=== PATIENT | female | born 1960 | race Caucasian/White ===

== ENCOUNTER 2016-08-06 11:11 | Day surgery (SDC) | payer OTHER ==
[2016-08-06] VITALS (7 sets, daily range): BP systolic 101–203; BP diastolic 52–92; PULSE 78–106; TEMP 98.3
[~2016-08-06] VITALS: Ht 165.2 cm; Wt 130.0 kg
[~2016-08-06 11:11] MED LIST: ACIDOPHILIS; ACIDOPHILUS PO; ALLEGRA60 MG PO; ARMOUR THYROID60 MG PO; BIAXIN 500MG T500 MG PO; BOSWELLIA EXTRACT PO; CEFTIN500 MG PO; CELEBREX; ELIQUIS 5MG PO; FLONASE NASAL S16 GM NS; LASIX 20MG TABL20 MG PO; MSM1000 MG; MULTAQ400 MG PO; MULTI VITAMINS1 TAB PO; MULTIPLE VITAMI1 CAP PO; NIFEREX-150 FOR1 CA1 PO; OMEGA-3 1000 MG1 CAP PO; PHENERGAN25 MG RC; SINGULAIR; SINGULAIR 110 MG/TAB PO; SYNTHROID PO; TUSS PO; TYLENOL/CODEINE1 ML PO; ULTRAM 50MG TAB50 MG PO; VITAMIN E800 I1 PO; VITAMINC1000TA; [UNRECOGNIZED DRUG - CODE]; [UNRECOGNIZED DRUG - REMARK]
[2016-08-06] MEDS ORDERED: CALCIUM-MAGNES1 EAC1 PO (12:52)
[2016-08-06 13:22] LABS: HEMATOCRIT 41.3 % (37.0-47.0); HEMOGLOBIN 12.3 g/dl (12.5-16.0); INR 1.1 (0.8-3.0); MEAN CELL VOLUME 92 fl (80.0-100.0); MEAN CORPUSCULAR HEMOGLOBIN 28 pg (27.0-31.0); MEAN CORPUSCULAR HGB CONC 30 g/dl (33.0-37.0); MEAN PLATELET VOLUME 11.2 fl (7.4-10.4); PLATELET COUNT 212 K/mm3 (130-400); PROTHROMBIN TIME 12.2 SECONDS (9.7-12.8); RED BLOOD COUNT 4.47 M/mm3 (4.10-5.30); REDCELL DISTRIBUTION WIDTH-CV 14.2 % (11.5-14.5); WHITE BLOOD COUNT 5.3 K/mm3 (4.8-10.8)
[2016-08-06 13:41] LABS: CALCIUM 9.8 mg/dL (8.4-10.2); CREATININE, serum 0.65 mg/dL (0.52-1.25); POTASSIUM 4.2 mmol/L (3.4-5.0)
== END 2016-08-06 18:45 | disposition home or self-care (01) ==
LOC: EUO 11:11 → COL.RAD 11:15 → EUO 18:45
PROVIDERS: Internal Medicine Interventional Cardiology
DX: R94.39 Abnormal result of other cardiovascular function study (principal); R06.02 Shortness of breath; I48.0 Paroxysmal atrial fibrillation; R07.89 Other chest pain; I83.93 Asymptomatic varicose veins of bilateral lower extremities
CPT/HCPCS: C1887; J2250; J3010; Q9967

== ENCOUNTER 2016-09-17 08:45 | Outpatient (RCR) | payer OTHER ==
[~2016-09-17 08:45] MED LIST changes: +CALCIUM-MAGNES1 EAC1 PO
== END 2016-11-18 | disposition home or self-care (01) ==
LOC: WSC
DX: R53.81 Other malaise (principal); I48.0 Paroxysmal atrial fibrillation

== ENCOUNTER 2017-02-23 23:48 | Emergency (ER) | payer OTHER ==
[~2017-02-23] VITALS: Ht 165.1 cm; Wt 117.2 kg
[2017-02-24 00:58] LABS: BASO % 0.5 % (0.0-2.0); EOS # 0.4 (0.0-0.7); GRAN # 2.6 (1.4-6.5); GRAN % 45.2 % (42.2-75.2); HEMOGLOBIN 12.6 g/dl (12.5-16.0); LYMPH # 2.2 (1.2-3.4); LYMPH % 38.1 % (20.0-51.0); MEAN CELL VOLUME 87 fl (80.0-100.0); MEAN CORPUSCULAR HEMOGLOBIN 28 pg (27.0-31.0); MEAN CORPUSCULAR HGB CONC 32 g/dl (33.0-37.0); MEAN PLATELET VOLUME 10.6 fl (7.4-10.4); MONO # 0.5 (0.1-0.6); MONO % 8.9 % (1.7-9.3); PLATELET COUNT 250 K/mm3 (130-400); RED BLOOD COUNT 4.58 M/mm3 (4.10-5.30); REDCELL DISTRIBUTION WIDTH-CV 14.8 % (11.5-14.5); WHITE BLOOD COUNT 5.9 K/mm3 (4.8-10.8)
[2017-02-24 01:10] LABS: ADJUSTED CALCIUM 9.2 mg/dL (8.4-10.2); ALANINE AMINOTRANSFERASE 26 U/L (9-52); ALBUMIN 4.3 gm/dL (3.5-5.0); ALKALINE PHOSPHATASE 95 U/L (50-136); ANION GAP 11 mmol/L (7-16); BILIRUBIN,TOTAL 0.6 mg/dL (0.0-1.0); BLOOD UREA NITROGEN 24 mg/dL (7-17); C-REACTIVE PROTEIN 1.4 mg/dL (0.0-0.9); CALCIUM 9.4 mg/dL (8.4-10.2); CARBON DIOXIDE 27 mmol/L (22-30); CHLORIDE 103 mmol/L (98-107); CREATININE, serum 0.77 mg/dL (0.52-1.25); GLUCOSE 90 mg/dL (74-106); POTASSIUM 4.4 mmol/L (3.4-5.0); SODIUM 141 mmol/L (137-145); TOTAL PROTEIN 7.6 gm/dL (6.4-8.2)
[2017-02-24 01:19] LABS: B-TYPE NATRIURETIC PEPTIDE 203 pg/mL (0-125)
[2017-02-24 01:22] LABS: TROPONIN-I < 0.012 ng/mL (0.000-0.034)
[2017-02-24 02:10] LABS: PH 6 (5-8); SQUAMOUS EPITHELIAL 0-2 /hpf; URINE APPEARANCE Hazy; URINE BACTERIA Rare /hpf; URINE BILIRUBIN Negative (NEGATIVE); URINE BLOOD Negative (NEGATIVE); URINE COLOR Yellow; URINE GLUCOSE Negative (NEGATIVE); URINE KETONE Negative (NEGATIVE); URINE RBC 0-2 /hpf; URINE UROBILINOGEN Negative (NEGATIVE); URINE WBC 0-2 /hpf
[2017-02-24 02:26] VITALS: BP 162/79; PULSE 74
== END 2017-02-24 02:47 | disposition home or self-care (01) ==
LOC: COL.ER 23:48
PROVIDERS: Family Medicine
DX: E86.0 Dehydration (principal); I48.91 Unspecified atrial fibrillation
CPT/HCPCS: J7030

== ENCOUNTER → 2017-06-08 | Outpatient (CLI) | payer OTHER ==
[~2017-06-08] MED LIST changes: +ZYRTEC 10MG10 MG PO; +[UNRECOGNIZED DRUG - OTHER] TOP
== END ==
LOC: MC.RAD 15:04
DX: Z12.31 Encounter for screening mammogram for malignant neoplasm of breast (principal)

== ENCOUNTER 2017-12-01 08:16 | Outpatient (RCR) | payer OTHER | END 2017-12-08 10:49 | disposition home or self-care (01) | LOC: WSOH 08:16 | DX: S70.01XA Contusion of right hip, initial encounter (principal); S50.01XA Contusion of right elbow, initial encounter; W01.0XXA Fall on same level from slipping, tripping and stumbling without subsequent striking against object, initial encounter; Y93.01 Activity, walking, marching and hiking; Y99.0 Civilian activity done for income or pay; Z79.899 Other long term (current) drug therapy ==

== ENCOUNTER 2018-02-28 14:15 | Outpatient (RCR) | payer OTHER | END 2018-03-19 | disposition home or self-care (01) | LOC: WSPT | DX: S70.01XD Contusion of right hip, subsequent encounter (principal); S40.021D Contusion of right upper arm, subsequent encounter ==

== ENCOUNTER 2018-05-30 09:00 | Outpatient (RCR) | payer OTHER | END 2018-06-19 | disposition home or self-care (01) | LOC: WSPT | DX: S70.01XD Contusion of right hip, subsequent encounter (principal); S40.021D Contusion of right upper arm, subsequent encounter; R53.81 Other malaise; W18.30XD Fall on same level, unspecified, subsequent encounter ==

== ENCOUNTER → 2018-06-12 | Outpatient (CLI) | payer OTHER | LOC: MC.RAD 09:33 | DX: Z12.31 Encounter for screening mammogram for malignant neoplasm of breast (principal) ==

== ENCOUNTER → 2019-06-26 | Outpatient (CLI) | payer OTHER | LOC: MC.RAD 10:58 | DX: Z12.31 Encounter for screening mammogram for malignant neoplasm of breast (principal) ==

== ENCOUNTER 2019-08-28 13:30 | Outpatient (RCR) | payer OTHER | END 2019-09-06 | disposition home or self-care (01) | LOC: WSC | DX: M19.011 Primary osteoarthritis, right shoulder (principal); S43.421A Sprain of right rotator cuff capsule, initial encounter ==

== ENCOUNTER 2019-11-27 13:00 | Outpatient (RCR) | payer OTHER | END 2020-02-25 | disposition home or self-care (01) | LOC: MKS.ESL.PT → EDSTATUS 13:00 → MKS.ESL.PT 13:00 | DX: S43.421A Sprain of right rotator cuff capsule, initial encounter (principal); M19.011 Primary osteoarthritis, right shoulder ==

== ENCOUNTER → 2020-06-30 | Outpatient (CLI) | payer OTHER | LOC: MC.RAD 11:45 | DX: Z12.31 Encounter for screening mammogram for malignant neoplasm of breast (principal) ==

== ENCOUNTER 2020-10-29 16:15 | Outpatient (RCR) | payer OTHER | END 2020-11-17 10:58 | LOC: WSC 16:15 | DX: M25.551 Pain in right hip (principal) ==

== ENCOUNTER → 2021-07-20 | Outpatient (CLI) | payer OTHER | LOC: MC.RAD 10:45 | DX: Z12.31 Encounter for screening mammogram for malignant neoplasm of breast (principal) ==

== ENCOUNTER 2021-10-15 | Emergency (ER) | payer OTHER ==
[~2021-10-15] VITALS: Ht 165.1 cm; Wt 117.7 kg
[2021-10-15 00:21] VITALS: TEMP 99.1
[2021-10-15 00:52] LABS: BASO % 0.2 % (0.0-2.0); EOS % 0.1 % (0.0-4.0); GRAN # 9.8 K/mm3 (1.4-6.5); GRAN % 89.1 % (42.2-75.2); HEMATOCRIT 39.1 % (37.0-47.0); HEMOGLOBIN 12.6 g/dl (12.5-16.0); LYMPH # 0.3 K/mm3 (1.2-3.4); LYMPH % 3.1 % (20.0-51.0); MEAN CELL VOLUME 89 fl (80.0-100.0); MEAN CORPUSCULAR HEMOGLOBIN 29 pg (27-31); MEAN CORPUSCULAR HGB CONC 32 g/dl (33.0-37.0); MEAN PLATELET VOLUME 12.2 fl (7.4-10.4); MONO # 0.8 K/mm3 (0.1-0.6); PLATELET COUNT 134 K/mm3 (130-400); RED BLOOD COUNT 4.38 M/mm3 (4.10-5.30); REDCELL DISTRIBUTION WIDTH-CV 14.2 % (11.5-14.5)
[2021-10-15 01:01] LABS: ALBUMIN 3.4 gm/dL (3.4-4.8); BILIRUBIN,TOTAL 1.1 mg/dL (0.2-1.2); CALCIUM 9.4 mg/dL (8.4-10.2); CREATININE, serum 1.22 mg/dL (0.57-1.11); POTASSIUM 4.8 mmol/L (3.5-4.5); TOTAL PROTEIN 7.3 gm/dL (6.2-8.1)
[2021-10-15 01:07] LABS: TROPONIN-I 0.013 ng/mL (0.00-0.033)
[2021-10-15 01:37] LABS: COLLECTION METHOD CLEAN CATCH
[2021-10-15 01:50] LABS: MUCOUS Present (NOT PRESENT); PH 5 (5-8); SQUAMOUS EPITHELIAL 0-2 /hpf (0-10); URINE APPEARANCE Cloudy (CLEAR/HAZY); URINE BACTERIA Occasional /hpf (NONE SEEN); URINE BILIRUBIN Negative (NEGATIVE); URINE BLOOD 2+ (NEGATIVE); URINE COLOR Yellow (YELLOW); URINE GLUCOSE Negative (NEGATIVE); URINE KETONE Negative (NEGATIVE); URINE LEUKOCYTE ESTERASE 1+ (NEGATIVE); URINE NITRATE Negative (NEGATIVE); URINE PROTEIN(semi-quant) 2+ (NEGATIVE)
[2021-10-15] MEDS ORDERED: VANTIN100 MG PO (03:47)
[2021-10-15] MEDS ORDERED: PHENERGAN 25 TA25 MG PO (03:47)
[2021-10-15 04:05] VITALS: BP 168/78; PULSE 76
== END 2021-10-15 04:05 | disposition home or self-care (01) ==
LOC: COL.ER
PROVIDERS: Emergency Medicine
DX: N39.0 Urinary tract infection, site not specified (principal); I48.91 Unspecified atrial fibrillation; E66.9 Obesity, unspecified; Z88.1 Allergy status to other antibiotic agents; Z88.2 Allergy status to sulfonamides; Z79.899 Other long term (current) drug therapy
CPT/HCPCS: J0696; J1200; J2765; J7120

== ENCOUNTER → 2022-11-01 | Outpatient (CLI) | payer BC ==
[~2022-11-01] MED LIST changes: +PHENERGAN 25 TA25 MG PO; +VANTIN100 MG PO
== END ==
LOC: MC.RAD 11:15
DX: Z12.31 Encounter for screening mammogram for malignant neoplasm of breast (principal)

== ENCOUNTER → 2023-12-26 | Outpatient (CLI) | payer BC | LOC: MC.RAD 11:11 | DX: Z12.31 Encounter for screening mammogram for malignant neoplasm of breast (principal) ==